=== PATIENT | male | born 1960 | race Caucasian/White ===

== ENCOUNTER 2017-02-23 18:07 | Inpatient (IN) ==
[2017-02-23] MEDS ORDERED: ZOFRAN IV ONE (18:32)
[2017-02-23] MEDS ORDERED: ANTIVERT PO ONE (18:43)
[2017-02-23 19:11] LABS: MANUAL DIFF NEEDED? NO
--- NOTE | 2017-02-23 19:17 | Diag Imaging Result Doc PS360 ---
EXAM: HEAD W/O CONTRAST HISTORY: dizziness TECHNIQUE: Dose reduction protocol COMPARISON: None. FINDINGS: No parenchymal hemorrhage. No epidural or subdural hematoma. No subarachnoid hemorrhage. Small old right parietal infarct. No mass identified on this noncontrasted exam. No hydrocephalus. No sinus opacification. IMPRESSION: 1.No hemorrhage 2.Mild chronic ischemic changes with a small old right parietal infarct Electronically signed by Anthony Alvarez 02/23/2017 7:14 PM
[2017-02-23 19:20] LABS: INR 0.98; PROTIME 10.3 Seconds (9.2-11.7); PTT 25.4 Seconds (22.0-36.0)
[2017-02-23 19:22] LABS: BASO% 0.5 % (0.0-0.8); EOS% 3.7 % (0.0-10.0); HEMATOCRIT 45.2 % (42.0-52.0); IMM GRAN# 0.07 X1000 (0.0-0.04); IMM GRAN% 0.6 % (0.0-0.5); LYMPH# 2.38 X1000 (1.2-3.4); MCH 31.6 PG (27-31); MCHC 35.4 g/dL (33-37); MCV 89.2 FL (81-99); MONO# 0.83 X1000 (0.11-0.59); MONO% 7.7 % (1.7-9.3); MPV 10.3 FL (7.4-10.4); NEUT% 65.5 % (42.2-75.2); PLT 217 X1000 (130-400); RBC 5.07 XMIL (4.7-6.1)
[2017-02-23 19:39] LABS: AGAP 19; ALBUMIN 4.1 g/dL (3.5-5.0); ALKALINE PHOSPHATASE 91 U/L (32-122); BUN 19 mg/dL (8-22); CALCIUM 8.5 mg/dL (8.8-10.2); CHLORIDE 92 mmol/L (98-107); CK PROFILE 99 U/L (24-204); COSMO 272; GOT 18 U/L (10-34); GPT 22 U/L (10-44); MAGNESIUM 1.8 mg/dL (1.5-2.7); POTASSIUM 3.3 mmol/L (3.5-5.1); SODIUM 131 mmol/L (136-145); TCO2 20 mmol/L (25-35); TOTAL BILIRUBIN 0.25 mg/dL (0.20-1.00); TOTAL PROTEIN 6.5 g/dL (6.3-8.3)
--- NOTE | 2017-02-23 20:08 | Diag Imaging Result Doc PS360 ---
EXAM: FLAT/UPRIGHT ABD/1 VIEW CHEST HISTORY: nausea,diaphoresis TECHNIQUE: Flat and upright with chest, three views COMPARISON: Chest is compared to 11/26/2013 FINDINGS: Sternal wires are present. The lungs are well expanded. No pneumonia. No free air beneath the diaphragm. No bowel obstruction. No organomegaly. Oqfp-iv-vtoowate degenerative spine changes. IMPRESSION: 1.Mild cardiomegaly 2.No acute abdominal abnormality Electronically signed by Anthony Alvarez 02/23/2017 8:06 PM
--- NOTE | 2017-02-23 20:23 | PROVIDER DOCUMENTATION ---
This chart was entered by Merrill Mercado Scribe, acting as scribe for Elder Mac MD. HPI-Syncope/Dizziness - General Chief Complaint: Nausea/Vomiting Stated Complaint: DIZZINESS Time Seen by Provider: 02/23/17 18:18 Source: patient Allergies/Adverse Reactions: Patient Allergies Allergy/AdvReac Type Severity Reaction Status Date / Time atorvastatin calcium * Allergy Unknown Verified 02/23/17 19:29 [From Lipitor] Home Medications: Home Medication List Medication Instructions Recorded Confirmed Last Taken Type Aspirin [Aspirin EC] 81 mg PO DAILY 06/08/14 02/23/17 02/23/17 History Citalopram [Celexa] 20 mg PO DAILY 06/08/14 02/23/17 02/23/17 History Clopidogrel Bisulfate [Plavix] 75 mg PO DAILY 06/08/14 02/23/17 02/23/17 History Lisinopril 20 mg PO BID 06/08/14 02/23/17 02/23/17 History Multivitamin [Multi-Vitamin Daily] 1 each PO DAILY 06/08/14 02/23/17 02/23/17 History Nitroglycerin [Nitrostat] 0.4 mg SL PRN 06/08/14 02/23/17 07/26/14 07:00 History Furosemide [Lasix] 40 mg PO DAILY #0 tablet 06/10/14 02/23/17 02/23/17 Rx Isosorbide Mononitrate E.r. [Imdur] 60 mg PO DAILY #0 tablet 06/10/14 02/23/17 02/23/17 Rx Metoprolol Succinate E.r. [Toprol 50 mg PO DAILY #30 tablet 06/10/14 02/23/17 Rx Xl] Amlodipine Besylate [Amlodipine 2.5 mg PO DAILY 02/23/17 02/23/17 02/23/17 History Besylate] - History of Present Illness-Syncope/Dizzy Nature of Presenting Problem: Pt is a 56 yowm who presents to ER with CC of dizziness (room spinning) after 3 extraneous sneezes at approximately 1630 today while sitting on his couch at home watching tv. Pt also complains of nausea and vomiting. Pt reports hx of open heart surgery (originally going to have a triple bypass, but only had 1 bypass performed) and carotid surgery. Pt does report that he has been having soft stools and is diaphoretic on exam. Onset/Duration: reports: 1-3 hours ago Timing: reports: still present Position/Activity at time of episode: reports: sitting Symptoms prior to episode: reports: other (hard sneeze x3) Loss of Consciousness: no loss of consciousness Location of injury. (If syncope resulted in an injury.): reports: none Current Symptoms: reports: sweaty, nausea, vomiting, lightheaded, dizzy, lightheaded. denies: fever, chills, chest pain, breathing difficulty, short of breath, abdominal pain, shoulder pain, arm pain, weakness, headache, pale, weak pulse, headache, blurred vision Recently Seen Here or By Another Healthcare Provider: No - Dizziness Severity in ED: reports: moderate Dizziness Related Current/Associated Symptoms: reports: nausea/vomiting, lightheaded, dizzy (room spinning), lightheaded, sense of spinning (room spinning). denies: weakness, headache, pale, weak pulse, headache, blurred vision, hearing loss, ringing/roaring in ears, earache, sense of falling, syncope, sense of confusion, off balance, cannot walk, cannot stand, unable to sit up, chronic dizziness Any recent trauma/injury?: reports: none Patient usually:: reports: walks without assistance Review of Systems - Adult - REVIEW OF SYSTEMS - ADULT Constitutional: denies: chills, fever, fatique, night sweats, weight gain, weight loss Eyes: denies: decreased vision, blurred vision, double vision, eye pain Ears, Nose, Mouth & Throat: denies: ear discharge, ear pain, hearing loss, nose pain, hoarseness, throat pain, throat swelling Cardiovascular: denies: chest pain, irregular heart rate, palpitations, syncope Respiratory: denies: cough, dyspnea on exertion, excessive sputum production, shortness of breath, wheezing Gastrointestinal: reports: nausea, vomiting. denies: abdominal pain, hematemesis, constipation, diarrhea (soft stools, no diarrhea), difficulty swallowing, frequent heartburn, poor appetite, rectal bleeding Genitourinary: reports: no symptoms reported Musculoskeletal: reports: no symptoms reported Integumentary: reports: other (diaphoretic). denies: hives, hair loss, itching , mole changes, nail changes, rash, skin sores/ulcer, skin thickening Neurological: reports: dizziness/vertigo (room spinning). denies: ataxia, headache/migraines, loss of balance, numbness, paresthesia, seizure, slurred speech, syncope, tremors Psychiatric: reports: no symptoms reported Endocrine: reports: no symptoms reported Hematologic/Lymphatic: reports: no symptoms reported Allergic/Immunologic: reports: no symptoms reported All Other Systems: Reviewed and Negative Past History - Adult - PAST MEDICAL HISTORY-ADULT Review of Records: reports: Nursing Assessment Review, Medications Reviewed Cardiovascular: reports: HTN, hyperlipidemia, MT Neurological: reports: CVA - PRIOR SURGERIES/PROCEDURES Surgical/Procedure History: reports: CABG, other (bilateral carotids) - PRIOR HOSPITALIZATIONS Prior Hospitalizations: reports: for similar symptoms - IMMUNIZATION STATUS Childhood Immunizations: See Nurse Assessment Flu Vaccine: See Nurse Assessment - FAMILY HISTORY Family History: reviewed, not pertinent Physical Exam-General - PHYSICAL EXAM-ADULT Initial Vital Signs Reviewed: Yes - CONSTITUTIONAL General Appearance: appears well, alert, moderate distress, obese - EYES Eyes: pink conjunctivae, other (horizontal nystagmus when gazing to left). negative: PERRL/EOMI - HEAD, EARS, NOSE, MOUTH & THROAT HENMT: normocephalic/atraumatic, moist mucous membranes, normal ENT inspection, TMs normal, pharynx normal. negative: TM abnormal, TM obscurred by cerumen - NECK Neck: non-tender, full range of motion, supple, normal inspection. negative: C- spine tenderness, limited range of motion, lymphadenopathy - RESPIRATORY Respiratory: chest non-tender, lungs clear, normal breath sounds, no pleuratic chest pain, no respiratory distress, no accessory muscle use. negative: respiratory distress, decreased breath sounds, accessory muscle use, wheezing - CARDIOVASCULAR Cardiovascular: normal peripheral pulses, regular rate, rhythm. negative: bradycardia, tachycardia, irregularly irregular - GASTROINTESTINAL (ABDOMEN) Abdominal Exam: normal bowel sounds, non tender, soft, no organomegaly, no pulsatile mass. negative: guarding, rebound, tenderness - LYMPHATIC Lymphatic: no adenopathy - MUSCULOSKELETAL Back Exam: normal inspection, no CVA tenderness, no vertebral tenderness. negative: CVA tenderness, vertebral tenderness Extremity: normal range of motion, non-tender, normal gait, normal inspection, no pedal edema, no calf tenderness, normal capillary refill, pelvis stable. negative: deformity, erythema, inflammation, swelling, tenderness - SKIN Integumentary: normal color, normal turgor, warm/dry. negative: abrasion(s), diaphoresis, ecchymosis, erythema, laceration(s), swelling, tenderness, warm - NEUROLOGIC Neurologic: shirt sewer II-XII nml as tested, grossly normal, no motor/sensory deficits . negative: facial droop, focal weakness, motor weakness, sensory deficit - PSYCHIATRIC Psych/Mental Status: normal thought content, normal thought process, oriented x 3, anxious. negative: normal mood/affect Progress - PLAN OF CARE/RESULTS Progress/Plan/Lab Results: Vital Signs - 8 hr 02/23/17 18:09 02/23/17 19:41 Temperature 97.7 F Pulse Rate 99 H 82 Respiratory Rate 20 Blood Pressure 230/66 173/92 O2 Sat by Pulse Oximetry 98 94 L Laboratory Results - last 24 hr 02/23/17 02/23/17 02/23/17 18:30 18:30 18:30 WBC 10.82 H RBC 5.07 Hgb 16.0 Hct 45.2 MCV 89.2 MCH 31.6 H MCHC 35.4 RDW Std Deviation 12.9 Plt Count 217 MPV 10.3 Immature Gran % (Auto) 0.6 H Neut % (Auto) 65.5 Lymph % (Auto) 22.0 [place] % (Auto) 7.7 Eos % (Auto) 3.7 Baso % (Auto) 0.5 Immature Gran # (Auto) 0.07 H Neut # (Auto) 7.09 H Lymph # (Auto) 2.38 [place] # (Auto) 0.83 H Eos # (Auto) 0.40 Baso # (Auto) 0.05 PT INR PTT (Actin FS) D-Dimer Sodium 131 L Potassium 3.3 L Chloride 92 L Carbon Dioxide 20 L Anion Gap 19 BUN 19 Creatinine 1.0 Estimated GFR/1.73 m2 > 60 BUN/Creatinine Ratio 19 Glucose 234 H Calculated Osmolality 272 Calcium 8.5 L Magnesium 1.8 Total Bilirubin 0.25 AST 18 ALT 22 Alkaline Phosphatase 91 Creatine Kinase 99 Troponin T Xbp-O-Ilhprllzhyp Pept Total Protein 6.5 Albumin 4.1 Globulin 2.4 Albumin/Globulin Ratio 1.7 Lipase 24 02/23/17 02/23/17 02/23/17 18:30 18:30 18:30 WBC RBC Hgb Hct MCV MCH MCHC RDW Std Deviation Plt Count MPV Immature Gran % (Auto) Neut % (Auto) Lymph % (Auto) [place] % (Auto) Eos % (Auto) Baso % (Auto) Immature Gran # (Auto) Neut # (Auto) Lymph # (Auto) [place] # (Auto) Eos # (Auto) Baso # (Auto) PT 10.3 INR 0.98 PTT (Actin FS) 25.4 D-Dimer 0.35 Sodium Potassium Chloride Carbon Dioxide Anion Gap BUN Creatinine Estimated GFR/1.73 m2 BUN/Creatinine Ratio Glucose Calculated Osmolality Calcium Magnesium Total Bilirubin AST ALT Alkaline Phosphatase Creatine Kinase Troponin T Orc-H-Qrxlrctspov Pept 78 Total Protein Albumin Globulin Albumin/Globulin Ratio Lipase 02/23/17 18:30 WBC RBC Hgb Hct MCV MCH MCHC RDW Std Deviation Plt Count MPV Immature Gran % (Auto) Neut % (Auto) Lymph % (Auto) [place] % (Auto) Eos % (Auto) Baso % (Auto) Immature Gran # (Auto) Neut # (Auto) Lymph # (Auto) [place] # (Auto) Eos # (Auto) Baso # (Auto) PT INR PTT (Actin FS) D-Dimer Sodium Potassium Chloride Carbon Dioxide Anion Gap BUN Creatinine Estimated GFR/1.73 m2 BUN/Creatinine Ratio Glucose Calculated Osmolality Calcium Magnesium Total Bilirubin AST ALT Alkaline Phosphatase Creatine Kinase Troponin T < 0.010 Nog-W-Ucmmwkhkbwk Pept Total Protein Albumin Globulin Albumin/Globulin Ratio Lipase Orders Category Date Time Status Cardiac Monitoring DIRECTED Care 02/23/17 18:25 Active FSBS/Accucheck Result NOW Care 02/23/17 18:26 Active Oxygen Therapy- ED Nursing DIRECTED Care 02/23/17 18:25 Active Saline Loc NOW Care 02/23/17 18:25 Active HEAD W/O CONTRAST [CT] Stat Exams 02/23/17 18:42 Completed acute [FLAT/UPRIGHT ABD/1 VIEW CHEST] [RAD] Stat Exams 02/23/17 18:31 Completed CBC WITH ELECTRONIC DIFF [HEME] Stat Lab 02/23/17 18:30 Completed CK PROFILE [SP CHEM] Stat Lab 02/23/17 18:30 Completed COMPREHENSIVE METABOLIC PANEL [CHEM] Stat Lab 02/23/17 18:30 Completed D-DIMER [CHEM] Stat Lab 02/23/17 18:30 Completed LIPASE [CHEM] Stat Lab 02/23/17 18:30 Completed MAGNESIUM [CHEM] Stat Lab 02/23/17 18:30 Completed PRO B-NATRIURETIC PEPTIDE Stat Lab 02/23/17 18:30 Completed PROTIME WITH INR [COAG] Stat Lab 02/23/17 18:30 Completed PTT [COAG] Stat Lab 02/23/17 18:30 Completed TROPONIN T Stat Lab 02/23/17 18:30 Completed Meclizine [Antivert] Med 02/23/17 18:43 Discontinued 25 mg PO NOW ONE Ondansetron [Zofran] Med 02/23/17 18:32 Discontinued 4 mg IV NOW ONE EKG [EKG] Stat Ther 02/23/17 18:13 Ordered Result Diagrams: 02/23/17 18:30 02/23/17 18:30 - EKG 1 Time of EKG reading by physician:: 18:15 EKG Read and Signed by:: Elder Mac EKG Interpretation (*Must complete 3 of following elements*): Abnormal ( Possible left atrial enlargement; Incomplete RBBB; Anteroseptal infarct, age undetermiend; ST & T wave abnormality, consider inferolateral ischemia) Rate: 89 Rhythm: Sinus rhythm with occasional PVC - XRAY 1 XRAY: Bilateral XRAY Study: Chest, Abdomen Impression: See EMR Report XRAY Interpretation: Cardiomegaly, otherwise NAD - Dr. Mac - CT/MRI 1 CT Study: Head (No hemorrhage; Mild chronic ischemic changes with a small old right parietal infarct - Dr. Alvarez (Radiologist)) Impression: See EMR Report CT Results: See report - CONSULTS/PCP/HOSPITALIST Notification #1 *Consult/PCP/Hospitalist*: Dr. Barry (Hospitalist) Time Discussed: 20:20 Consult Disposition: Admit Departure - Departure Time of Disposition Decision: 20:20 DIAGNOSIS: Dizziness Uncontrollable nausea and vomiting Qualifiers: Vomiting type: unspecified Qualified Code(s): R11.2 - Nausea with vomiting, unspecified CAD (coronary artery disease) Qualifiers: Coronary Disease-Associated Artery/Lesion type: unspecified vessel or lesion type [place] vs. transplanted heart: [place] heart Associated angina: without angina Qualified Code(s): I25.10 - Atherosclerotic heart disease of [place] coronary artery without angina pectoris Disposition: ADMITTED INPATIENT 09 Certified Medical Emergency: Emergent Condition: Stable Referrals and Follow-Ups: None,PCP [Primary Care Provider] - - Critical Care Note This patient required my direct & personal management of CC.: No This chart was documented by the indicated scribe, (Merrill Mercado Scribe) and accurately reflects the services I performed and decisions made by me, Elder Mac MD, as attested by the provider's signature.
[2017-02-23] MEDS ORDERED: ZOFRAN IV PRN (20:29)
[2017-02-23] MEDS ORDERED: NITROGLYCERIN SL PRN (20:30)
[2017-02-23 21:06] LABS: HEMOGLOBIN A1C 7.8 % (4.8-6.0)
[2017-02-23] MEDS: PRINIVIL PO SCH (21:29)
[2017-02-23] MEDS: HUMALOG SUBQ SCH (21:35)
[2017-02-23] MEDS: POTASSIUM CHLORIDE 20 MEQ/SWI 20 MEQ/100 ML IVPB IV SCH ×2 (21:58→23:50)
[2017-02-23] MEDS ORDERED: NS 1,000 ML ONE (22:00)
[2017-02-23 22:35] LABS: UR AMPHETAMINES QUAL NONE DETECTED (NONE DETECT); UR BARBITUATES QUAL NONE DETECTED (NONE DETECT); UR BENZODIAZEPIN QUAL NONE DETECTED (NONE DETECT); UR CANNABINOIDS QUAL NONE DETECTED (NONE DETECT); UR COCAINE QUAL NONE DETECTED (NONE DETECT); UR METHADONE QUAL NONE DETECTED (NONE DETECT); UR OPIATES QUAL NONE DETECTED (NONE DETECT); UR OXYCODONE QUAL NONE DETECTED (NONE DETECT); UR PCP QUAL NONE DETECTED (NONE DETECT)
[2017-02-23] MEDS: NS 1,000 ML IV SCH ×2 (22:56→23:32)
[2017-02-23] MEDS ORDERED: TYLENOL PO PRN (22:58)
[2017-02-23] MEDS ORDERED: ATIVAN IV PRN (22:58)
[2017-02-23] MEDS ORDERED: ANTIVERT PO PRN (22:58)
--- NOTE | 2017-02-23 23:07 | HISTORY AND PHYSICAL ---
This dictation is for Dr. Julian Barry, hospitalist. PRIMARY CARE PROVIDER: Dr. Harkins. MANGLE TENDER CLOTH: Dr. Newby, in [place]. This dictation is for a pratik Barry hospitalist. CHIEF COMPLAINT: Dizziness after sneezing spell, and nausea and vomiting. HISTORY OF PRESENT ILLNESS: This is a 56-year-old male, who presented to the emergency room today with a complaint of vertigo and nausea and vomiting. He stated after having a sneezing spell this morning, I believe he said 3 sneezes, that he had blurred vision and double vision. He then experienced nausea and vomiting times several episodes. He also began having softer stools, which he states that he does not normally have. He stated that he has not been around anybody with illness recently. He has not had any travel outside the country. PAST MEDICAL HISTORY: He has a past medical history of coronary artery disease, hypertension, hyperlipidemia, which he is not on a statin, secondary to allergy, and he does confess that he is not controlling it with his diet very well. He also had a stroke in the past, and has had a bilateral carotid endarterectomy, so it is concerning the patient for his past vascular history. In the emergency room, a CT scan was obtained, which showed mild chronic ischemic changes with a small, old, right parietal infarct. It did not show any new acute disease. LABORATORY DATA: Grossly normal, other than a mild hyponatremia, sodium of 131, and elevated blood glucose. During the interview, the patient seemed very agitated and restless. However, he was alert and oriented x3. He did not have his at the bedside, who noted that he had taken Celexa for many years, but after changing to Dr. Harkins, it has not been continued. I believe this happened 3 years ago, and a they would be interested in him restarting that medication. At any rate, the patient will be admitted to the [facility] Unit, for further evaluation and treatment. PAST MEDICAL HISTORY: 1. Coronary artery disease, status post bypass in 2010. 2. Hypertension. 3. Hyperlipidemia with a statin allergy, and no current treatment. 4. Angina. 5. Stroke. 6. Diverticulosis. 7. Diabetes mellitus type 2 with hyperlipidemia. Again, with no current treatment. PREVIOUS SURGICAL HISTORY: 1. CABG in December 2010. 2. Bilateral carotid endarterectomy 2010. 3. He had saphenous vein grafting, as well as, pain in his left forearm and I believe his left side as well. FAMILY HISTORY: Significant for heart disease, and I believe his father of a myocardial infarction at age 59, also had a brother with a CA at age 40, and diabetes mellitus was noted in first-degree relatives. SOCIAL HISTORY: Patient is . Lives with his . He works at [employer]. He is a food office equipment mechanic. Quit smoking in 2010, after having a [id number] history. Denies alcohol or illicit drug use or abuse. ALLERGIES: Statin drugs. HOME MEDICATIONS: 1. Nitroglycerin 0.4 mg sublingual p.r.n. chest pain. 2. Plavix 75 mg p.o. daily. 3. Aspirin 81 mg p.o. daily. 4. Multivitamin 1 p.o. daily. 5. Celexa 20 mg p.o. daily, however the patient has not taken this in 3 years. 6. Lisinopril 20 mg p.o. b.i.d. 7. Toprol-XL 50 mg p.o. daily. 8. Imdur 60 mg p.o. daily. 9. Lasix 40 mg p.o. daily. 10. Amlodipine 2.5 mg p.o. daily. REVIEW OF SYSTEMS: A 14-point review of systems conducted with the patient. He denied overt chest pain or palpitations. He did complain of dizziness and vertigo and double vision. He did not complain of a headache. He did complain of sneezing, however, did not state he had rhinorrhea or any postnasal drip. Also was positive for nausea and vomiting. No hematemesis. He complained of soft stools. Denied overt diarrhea. No melena or hematochezia. He also complained of diaphoresis. All other positives for admission are listed above in the HPI. All other systems were reviewed and found to be negative. PHYSICAL EXAMINATION: VITAL SIGNS: Temperature 97.7, pulse 85, respirations 20, blood pressure 173/92, oxygen saturation 96% on 2 L nasal cannula. GENERAL: This is a slightly agitated 56-year-old male, lying in the ER stretcher, in no acute distress. He answers all questions appropriately, and is alert and oriented x3. However, he did become somewhat agitated or aggressive with some of the questioning. was at the bedside. HEENT: Head is atraumatic, normocephalic. Pupils equal, round, reactive to light. Extraocular eye movements intact. Sclerae was anicteric. Conjunctivae are pink. Oral mucosa was mildly dry. Poor dentition. Lips were chapped, otherwise no postnasal drip. Normal oropharynx. NECK: Supple. No JVD noted. Trachea midline. CARDIAC: Regular rhythm, S1-S2 appreciated. No murmurs, gallops, or rubs. Sinus rhythm was noted on monitor with PVCs. Nursing did note a 2:1 flutter on arrival to the emergency room. LUNGS: Mildly prolonged expiratory phase, otherwise, clear to auscultation. No rhonchi, wheezes or rales. Symmetrical rise and fall with respirations. CHEST: Midline scar noted from previous CABG. Symmetrical rise and fall with respirations, nontender to palpation. ABDOMEN: Protuberant, soft, nondistended, nontender. Bowel sounds present in all 4 quadrants, normoactive. No pulsatile mass. No organomegaly could be palpated. EXTREMITIES: Has 1+ nonpitting edema left lower extremity, and 1+ edema right lower extremity, mildly pitting on the right foot, and 2+ pedal pulses bilaterally. MUSCULOSKELETAL: Has 5/5 upper and lower extremity strength with normal range of motion, equal bilaterally. NEUROLOGICAL: Alert and oriented x3. Answers all questions appropriately. Cranial nerves 2 through 12 grossly intact. No facial asymmetry noted. GENITOURINARY: The patient voids. No bladder distention noted. Otherwise deferred. SKIN: Warm, dry and intact. No acute lesions or rash. DIAGNOSTIC DATA: CT of the head that showed mild chronic ischemic changes with a small, old, right parietal infarct. No mass effect. No hemorrhage. Abdominal x-ray was a flat and upright, it showed mild cardiomegaly, and no acute abdominal abnormality. LABORATORY DATA: WBC 10.82, hemoglobin 16, hematocrit 45.2, platelet count 217,000. Coag's within normal limits. D-dimer 0.35. Sodium 131, potassium 3.3, chloride 92, carbon dioxide 20, BUN is 19, creatinine is 1, glucose 234. CK 99, troponin less than 0.10. Lipase 24. ASSESSMENT AND PLAN: 1. TIA versus CVA with a differential of vertigo. We will keep the patient clear liquids tonight with aspiration precautions. The patient has a vasculopathy with multiple cardiac stents, and a previous stroke, as well as, a carotid endarterectomy. We will order MRI in the morning. He was given meclizine in the emergency room, which he did state helps. He was still having some blurred vision. We will order neuro checks q.2 hours. We will continue the meclizine. We will not consult Neurology at this time, but will consider if needed in the future. We will order an echocardiogram in the morning. 2. Hypertension. We will continue patient's home medications for hypertension at this time, with dosing to begin in the morning. Patient's blood pressure is mildly elevated in the 160s systolic. We will continue to keep him between 160 and 200 systolic for hypoperfusion, in case of a CVA. 3. Hyperlipidemia. We will check a fasting lipid panel in the morning. The patient, as noted above, has had multiple vascular incidents, but he has a statin allergy, and is not diet controlling. We have consulted dietary to give him teaching on this. 4. Diabetes mellitus type 2, with no home treatment. The patient was noted to be hyperglycemic with a blood glucose of 234. We will start on fingerstick blood sugars before meals at bedtime, not to be treated unless blood glucose is greater than 200, if he is insulin kacie. We will check a hemoglobin A1c. 5. Previous left stroke, with no residual deficits, aware. 6. Hyponatremia. This is likely related to patient's nausea and vomiting. We will give fluid hydration normal saline at 100 mL an hour. Hopeful that this will correct his sodium. As noted above, the patient wishes to restart Celexa, but as this can decrease the sodium, we will not start it at this time. We will also hold his Lasix for at least 24 hours, as he is mildly fluid volume depleted. 7. Coronary artery disease, status post bypass grafting. Continue Plavix and aspirin. 8. Nausea and vomiting. Zofran 4 mg IV q.4 hours. 9. Hypokalemia. We will give 40 mEq of potassium chloride IV. Additional orders: We will add Ativan 1 mg IV q.4 hours, as the patient did show agitation in the emergency room. We will also check a urine drug screen. The patient states that he does not use alcohol or illicit drugs. Dictated by COLIN Huynh for Julian Barry MD cc: COLIN Huynh MD Hiteshri S. Bhavsar, MD Dr. Hunter, in [place].
[2017-02-23] MEDS: LOVENOX SUBQ SCH (23:50)
[2017-02-23] MEDS: PROTONIX IV SCH (23:50)
[2017-02-23] MEDS: SODIUM CHLORIDE 0.9% INJ SCH (23:50)
[2017-02-24] MEDS ORDERED: PNEUMOVAX 23 IM ONE (00:30)
[2017-02-24 04:58] LABS: MANUAL DIFF NEEDED? NO
[2017-02-24 05:00] LABS: BASO% 0.3 % (0.0-0.8); HEMATOCRIT 41.9 % (42.0-52.0); HEMOGLOBIN 14.6 g/dL (14.0-18.0); IMM GRAN# 0.03 X1000 (0.0-0.04); IMM GRAN% 0.3 % (0.0-0.5); LYMPH# 1.61 X1000 (1.2-3.4); LYMPH% 16.3 % (20.5-51.1); MCH 31.6 PG (27-31); MCHC 34.8 g/dL (33-37); MCV 90.7 FL (81-99); MONO# 0.69 X1000 (0.11-0.59); MPV 9.9 FL (7.4-10.4); NEUT% 74.1 % (42.2-75.2); PLT 185 X1000 (130-400); RBC 4.62 XMIL (4.7-6.1)
[2017-02-24 05:28] LABS: AGAP 12; BUN 16 mg/dL (8-22); CALCIUM 8.5 mg/dL (8.8-10.2); CHLORIDE 103 mmol/L (98-107); COSMO 283; MAGNESIUM 1.9 mg/dL (1.5-2.7); POTASSIUM 4.2 mmol/L (3.5-5.1); SODIUM 140 mmol/L (136-145); TCO2 25 mmol/L (25-35)
[2017-02-24] MEDS: HUMALOG SUBQ SCH ×4 (06:25→20:44)
--- NOTE | 2017-02-24 07:26 | EKG Report ---
Test Performed on : 02/24/2017 07:04:09 AM Test Reason : rhythm check Blood Pressure : / mmHG Vent. Rate : 089 BPM Atrial Rate : 089 BPM P-R Int : 162 ms QRS Dur : 094 ms QT Int : 382 ms P-R-T Axes : 057 055 231 degrees QTc Int : 464 ms Normal sinus rhythm. Incomplete right bundle branch block Septal infarct (cited on or before 09-JUN-2014) ST \T\ T wave abnormality, consider inferolateral ischemia Abnormal ECG When compared with ECG of 23-FEB-2017 18:15, premature ventricular complexes. are no longer present T wave inversion more evident in Inferior leads T wave amplitude has increased in Anterior leads Confirmed by Luzmaria DÍAZ, Anibal Miller ([id number]) on 02/25/2017 8:20:43 AM
--- NOTE | 2017-02-24 07:27 | EKG Report ---
Test Performed on : 02/23/2017 6:15:58 PM Test Reason : Order Cancelled Blood Pressure : / mmHG Vent. Rate : 089 BPM Atrial Rate : 089 BPM P-R Int : 170 ms QRS Dur : 100 ms QT Int : 390 ms P-R-T Axes : 059 047 179 degrees QTc Int : 474 ms Sinus rhythm. with occasional premature ventricular complexes. Possible Left atrial enlargement Incomplete right bundle branch block Anteroseptal infarct (cited on or before 09-JUN-2014) ST \T\ T wave abnormality, consider inferolateral ischemia Abnormal ECG When compared with ECG of 26-JUL-2014 08:59, Significant changes have occurred Unconfirmed Result
[2017-02-24] MEDS: IMDUR PO SCH (08:55)
[2017-02-24] MEDS: ASPIRIN EC PO SCH (08:55)
[2017-02-24] MEDS: NORVASC PO SCH (08:55)
[2017-02-24] MEDS: PLAVIX PO SCH (08:55)
[2017-02-24] MEDS: TOPROL XL PO SCH (08:55)
[2017-02-24] MEDS: PRINIVIL PO SCH ×2 (08:55→20:44)
[2017-02-24] MEDS: THERA M PLUS PO SCH (08:55)
--- NOTE | 2017-02-24 09:08 | PROGRESS NOTE ---
DATE: 02/24/2017 SUBJECTIVE: He described yesterday he had just finished mowing the grass or doing yard work came in. He sneezed 3 times consecutively and noticed that the TV and everything in his vision was spinning around. He did not lose any vision, both eyes presented the same way. He broke out in a sweat and was nauseated. Denied any real focal changes. No tonic-clonic activity. He came to the emergency room and it seemed to let up some, although there was still some visual movement. This morning, he did not appreciate it as much. OBJECTIVE: Lungs: His lungs are clear in all lung badillo. Cardiovascular: Regular rhythm and rate without murmur or S3. Abdomen: Soft. Neck: Carotids, I did not appreciate any bruits. Vital signs: He remained afebrile. Temperature 98.4, pulse 84, respirations 18, blood pressure 184/64. Skin: Warm and dry. LAB: White count 9870, hematocrit 41, platelet count 185,000. Chemistry: Sodium 140, potassium 4.2, chloride 103, bicarb 25, BUN 16, creatinine 0.9. Note, his cholesterol profile LDL was 116. His HDL was 28. TSH was 0.95. CT of his head without contrast was no hemorrhage, mild. Chronic ischemic changes. Small, old, right parietal infarct noted. Abdominal x-ray done yesterday. No acute abnormality. Other history: He has had a coronary bypass and he has had some stents placed. No heart attack by his report. He has had both carotids cleaned out. ASSESSMENT AND PLAN: This sounds like vertiginous symptoms with visual field rotating. No other focal neurologic deficits, accompanied by some nausea. We are going to hydrate him with some fluid. I think watch his blood pressure, which is a little on the high side. We may adjust his medications. At present time, he is on amlodipine 2.5 mg a day. He is on Plavix 75 mg a day. Prinivil 20 mg b.i.d., they did start him on some meclizine p.r.n. or Antivert. He is on metoprolol 50 mg daily. We will watch him today and see how he does. He is on, I think a regular diet. An MRI or MRA of the brain was ordered. Not sure if we will be able to get that before tomorrow, being a holiday weekend. cc: Phil Regalado MD
[2017-02-24] MEDS: NS 1,000 ML IV SCH ×3 (09:10→19:48)
--- NOTE | 2017-02-24 17:47 | ECHO REPORT ---
ORDER DATE: 02/24/2017 TEST: Echocardiography report. MEASUREMENTS: Left ventricular end-diastolic diameter 5.4, end-systolic diameter 3.4, left atrium 5.1, aortic root 3. SUMMARY: 1. Technically difficult study due to limited acoustic window quality. 2. Mild aortic valve sclerosis is demonstrated with adequate aortic valve opening evident. Peak gradient across the aortic valve is 24 mmHg. There is mild aortic regurgitation. Mild to moderate mitral annular calcification is demonstrated, with mild to moderate mitral regurgitation. Tricuspid and pulmonic valves are without structural abnormality with trace tricuspid regurgitation. Aortic root is normal in size. 3. Normal left ventricular chamber size, with mild concentric left ventricular hypertrophy is suggested on 2-dimensional images. Estimated left ventricular ejection fraction appears to be at least 65%. No regional wall motion abnormalities can be appreciated. Doppler suggests grade 1 left ventricular diastolic dysfunction. Left atrium is moderately enlarged. Right atrium and right ventricle are normal in size with normal right ventricular systolic function. 4. No pericardial effusion. 5. Inferior vena cava not well demonstrated. CONCLUSIONS: 1. Technically difficult study. 2. Mild aortic valve sclerosis with minimal aortic stenosis and mild aortic regurgitation. 3. Mild to moderate mitral annular calcification with mild to moderate mitral regurgitation. 4. Mild concentric left ventricular hypertrophy with estimated left ventricular ejection fraction at least 65%. 5. Grade 1 left ventricular diastolic dysfunction suggested. 6. Moderate left atrial enlargement. cc: MD Pablito Nolasco CRNP
[2017-02-24] MEDS: SODIUM CHLORIDE 0.9% INJ SCH (22:52)
[2017-02-24] MEDS: LOVENOX SUBQ SCH (22:52)
[2017-02-24] MEDS: PROTONIX IV SCH (22:52)
[2017-02-25] MEDS: NS 1,000 ML IV SCH ×3 (05:09→20:54)
[2017-02-25] MEDS: HUMALOG SUBQ SCH ×4 (06:05→20:52)
[2017-02-25] MEDS: ASPIRIN EC PO SCH (08:59)
[2017-02-25] MEDS: PRINIVIL PO SCH (08:59)
[2017-02-25] MEDS: NORVASC PO SCH (08:59)
[2017-02-25] MEDS: IMDUR PO SCH (08:59)
[2017-02-25] MEDS: PLAVIX PO SCH (08:59)
[2017-02-25] MEDS: THERA M PLUS PO SCH (08:59)
[2017-02-25] MEDS: TOPROL XL PO SCH (08:59)
--- NOTE | 2017-02-25 13:03 | Diag Imaging Result Doc PS360 ---
EXAM: MRA BRAIN W/O CONTRAST INDICATION: stroke COMPARISON: None. FINDINGS: There is no evidence of flow-limiting stenosis, vascular malformation, or cerebral aneurysm involving the arteries comprising the [place] including the anterior, middle, and posterior circulations. The intracranial segments of the ICAs and the distal vertebral arteries are grossly unremarkable. IMPRESSION: No evidence of intracranial flow-limiting stenosis. Electronically signed by Fab Cheng 02/25/2017 1:01 PM
--- NOTE | 2017-02-25 13:42 | PROGRESS NOTE ---
DATE: 02/25/2017 SUBJECTIVE: Today Mr. Amaya refers to be doing fine. Dizziness and vertigo have completely resolved, but he still feels very unbalanced. OBJECTIVE: Vital signs: Blood pressure is 169/76, pulse of 88, respirations 14 , temperature 98.6 degrees. General: Mr. Oviedo is a 56-year-old male. He was sitting up in a chair. He did not seem to be in any distress. HEENT: Mucosa is pink and moist. Anicteric. Acyanotic. Neck: Supple. Chest: Clear. Cardiovascular: Regular rate and rhythm. Abdomen: Soft, nontender. Extremities: No pedal edema. TREE SURGEON: Patient was alert, oriented, had a little bit of wide-based gait, but otherwise no other cerebellar functions were found and has minimal motor deficit. LABORATORY DATA: Glucose is 145. ASSESSMENT: 1. Acute vertigo with multiple episodes of vomiting. Patient did have an MRA which was negative, but we need an MRI to make sure he does not have any posterior circulation infarction. I will therefore order an MRI. I have already spoken with the r and d lab technician down there and he is willing to do that so we will review the report and go from there. 2. Uncontrolled hypertension. The patient presented with a blood pressure of 230/66, and I think this could have also been implicating the etiology of the vertigo. Now that the blood pressure is a whole lot better controlled, vertigo is also improved. We will continue aggressive management of his blood pressure. 3. Morbid obesity with a BMI of 38. The patient has been counseled. 4. History of coronary artery disease status post coronary artery bypass graft in 2006 noted. 5. Diabetes mellitus stable. cc: Jim Juarez MD Review MRI report: Acute Left cerebellar infarct. a- consult Neurology b- continue with dual antiplatelet therapy as before c- start Zetia since patient had a bad pancreatitis reaction to Lipitor. d- Advised the attending nurse to look out for possible complications of posterior circulation stroke e- advised liberal BP management critical time spent 45 minutes MTDD
--- NOTE | 2017-02-25 14:49 | Diag Imaging Result Doc PS360 ---
EXAM: MRI BRAIN W W/O CONTRAST INDICATION: vertigo COMPARISON: None. FINDINGS: There is a focal acute infarct involving the left cerebellar hemisphere anteriorly. No other acute infarct is appreciated. There is increased T2/FLAIR signal in the left cerebellar hemisphere corresponding to the infarct. There are several chronic lacunar infarcts in the periventricular white matter bilaterally but predominantly on the right. There is gliosis surrounding these chronic infarct. There is patchy T2/FLAIR hyperintensity in the periventricular and subcortical white matter suggesting mild to moderate microangiopathy. On T2/FLAIR, there is a focal wedge-shaped hyperintensity in the left cerebellar hemisphere. It is separate from but near the acute infarct. There is no restricted diffusion associated with this smaller focus indicating that it is not an acute infarct. There is, however, focal enhancement corresponding to the signal abnormality on postcontrast T1 images. It is nonspecific but it probably represents an older subacute infarct that has normalized on diffusion and is now exhibiting enhancement, which is often the case as infarcts age. There is no discrete intracranial mass, mass effect, or intracranial hemorrhage, otherwise. The surrounding soft tissues and bony structures are essentially unremarkable. IMPRESSION: 1.Acute infarct involving the left cerebellar hemisphere. 2.Focal signal abnormality separate from the acute infarct also involving the left cerebellar hemisphere that exhibits enhancement. More than likely this represents an older subacute infarct. Consider a follow-up scan, however. 3.Several periventricular chronic lacunar infarcts. Electronically signed by Fab Cheng 02/25/2017 2:47 PM
[2017-02-25] MEDS ORDERED: TOPROL XL PO SCH (16:08)
[2017-02-25] MEDS ORDERED: ZETIA PO SCH (21:00)
[2017-02-25] MEDS: PROTONIX IV SCH (22:22)
[2017-02-25] MEDS: LOVENOX SUBQ SCH (22:22)
[2017-02-26] MEDS: HUMALOG SUBQ SCH ×2 (06:47→11:54)
[2017-02-26] MEDS: ASPIRIN EC PO SCH (08:08)
[2017-02-26] MEDS: PLAVIX PO SCH (08:09)
[2017-02-26] MEDS: THERA M PLUS PO SCH (08:09)
[2017-02-26] MEDS: IMDUR PO SCH (08:09)
[2017-02-26] MEDS: NS 1,000 ML IV SCH (08:56)
[2017-02-26] MEDS ORDERED: PRINIVIL PO SCH (09:00)
[2017-02-26 11:55] VITALS: BP 188/70
--- NOTE | 2017-02-26 12:24 | CONSULTATION ---
DATE OF CONSULTATION: 02/26/2017 HISTORY OF PRESENT ILLNESS: Mr. Amaya is 56 years old and there is MRI evidence of acute cerebellar infarction. History from the patient is that he did a little bit of yard work three days ago and was not overheated or exhausted. He felt well. He came inside to rest. He noted sudden onset of vision circling in a clockwise direction. Vision disturbance persisted no matter what direction he put his gaze. There was never diplopia, blindness, or focal loss of visual field. He developed some nausea and went to the bathroom to vomit. He felt a little bit weak all over, but there was no focal weakness or focal clumsiness. He did not specifically notice stumbling, unsteady gait. He did not fall. He did not have headache. There was never altered consciousness, altered awareness, memory gap. He came to the hospital and gradually recovered. He felt well the next day, but did notice occasional brief vision disturbance, particularly when reclined looking at the overhead ceiling lights. He has not had any vision disturbance in the last 2 days. He feels completely back to baseline now. There is history of stroke [place] He reports waking up from anesthesia then noticing left-sided weakness. He gradually recovered, spent some time in rehabilitation, and then was eventually completely back to baseline. There is no other history of clinical stroke. He had apparent carotid endarterectomy one side a few weeks after CABG and other side the following month. He does not recall carotid imaging since endarterectomy. Workup here includes brain MRI scan showing restricted diffusion in the left cerebellar hemisphere consistent with acute infarction. There is also a wedge-shaped separate area in the left cerebellar hemisphere consistent with old infarction. There are scattered white matter signals in the cerebral hemispheres bilaterally, more prominent on the right. He has been taking his medicines correctly, including Zetia, blood pressure medicines, aspirin and clopidogrel. He quit smoking cigarettes several years ago. He has never had diagnosed diabetes mellitus. reports he had a problem tolerating a statin drug. She and patient believe that he might have had pancreatitis associated with atorvastatin, but she is not certain. Other workup includes brain MRA showing nothing remarkable. I do not find evidence or report of carotid imaging this admission, and I will order that. Echocardiogram showed no source of embolus. Systolic blood pressures were over 200 initially. He has had some systolics recorded in the 190s here. He has tolerated that without headache. reports systolic blood pressures usually 150s when checked at home, but they did not check blood pressure when he had his recent episode. On exam, Mr. Amaya is awake, alert, attentive and appropriate. Speech is not dysarthric. Language function is intact. Memory is good. Head and neck are unremarkable. Visual badillo are full, tested carefully by confrontational finger counting. He has full lateral and horizontal eye movements without significant nystagmus. Facial sensation and motility are symmetric. Gag is intact. Palate is midline. Tongue is midline. He can hear. Shoulder shrug is good bilaterally. He has good strength in the arms and legs. Tone is symmetric in the limbs. He did well on finger- to-nose testing bilaterally. He did well while seated with [id number] testing. He reports good pinprick appreciation over the limbs. Reflexes are 1+ at the wrists, 2+ at the knees, 1+ at the ankles symmetrically. Plantar response is silent bilaterally. Proprioception is normal at the great toe MTP joint bilaterally. Gait is normal. I observed him walking somewhat tethered by the IV pole and heart monitor, but there was no significant wide base or other ataxia feature. He turns well to the left and to the right. He was able to place his feet properly for heel-to-toe tandem walking without assistance. Romberg is absent. IMPRESSION: 1. Acute left cerebellar hemispheric infarction with little in the way of clinical features. No evidence of increased intracranial pressure from obstructive hydrocephalus. 2. Previous left hemiparesis following coronary artery bypass graft with magnetic resonance imaging evidence of right more than left hemisphere old subcortical infarction. 3. Risk factors for cerebrovascular disease, including ischemic heart disease, previous stroke, previous cigarette smoking, hypertension, dyslipidemia. There is also evidence of diabetes mellitus based on elevated blood sugars recorded this admission. We discussed his risk factors. I encouraged him to be aggressive with management of those. 4.Carotid ultrasound just completed shows critical stenosis. We do not have prior study for comparison, but features are consistent with chronic stenosis. This is not the vascular distribution for his recent infarct. We discussed options for further work- up including CTA, MRA, conventional arteriogram. Since he is clinically stable and that lesion is not symptomatic, I think it would be reasonable to discharge home with plan to repeat carotid study in a few months, sooner if more symptoms. I do not think we need any other workup urgently. I told him to report if he has any more episodes. I encouraged him to stay well hydrated. Thanks for asking me to see Mr. Amaya. cc: Clinton Pichardo III, MD MTDD
--- NOTE | 2017-02-27 09:23 | DISCHARGE SUMMARY ---
ADMISSION DATE: 02/23/2017 DISCHARGE DATE: 02/26/2017 DATE OF ADMISSION: 02/23/2017. DATE OF DISCHARGE: 02/26/2017. PERTINENT PROCEDURES: 1. Head CT. 2. Brain MRA. 3. Brain MRI. The MRI was negative for hemorrhage. Showed mild chronic ischemic changes with a small old right parietal infarct. Brain MRA showed no evidence of intracranial flow limiting stenosis. Brain MRI showed an acute infarct involving the left cerebral hemisphere. A focal signal abnormality separate from the acute infarct also involving the left cerebellar hemisphere that exhibited enhancement more than likely represents an older subacute infarct and several periventricular chronic lacunar infarcts. Echocardiogram showed an ejection fraction of 65% with grade 1 ventricular diastolic dysfunction. DISCHARGE DIAGNOSES: 1. Acute left cerebellar infarct. Neurology was consulted. Continue with dual anti-platelet therapy. Started Zetia. The patient had a bad pancreatitis reaction to Lipitor. Neurology suggestion encouraged aggressive management with his risk factors, which included ischemic heart disease, previous stroke, previous cigarette smoking, hypertension, dyslipidemia, as well as evidence of diabetes, and a carotid ultrasound completed showed critical stenosis. There was no prior study for comparison but was consistent with chronic stenosis. This was not a vascular distribution for his recent infarct. Dr. Pichardo discussed options for further workup, including a CTA, MRA, and conventional arteriogram. Since clinically he is stable in the lesion is not symptomatic, he felt it would be reasonable to discharge the patient home with a plan to repeat his carotid study in a few months, or sooner if more symptoms arose. 2. Acute vertigo with multiple episodes of vomiting secondary to acute left cerebellar infarct. Improved. 3. Uncontrolled hypertension. On admission, the patient's blood pressure was 230/66. It is no controlled. Continue with aggressive management of his blood pressures. 4. Morbid obesity with a BMI of 38. The patient has been counseled on diet as well as an exercise regimen. 5. Coronary artery disease status post a coronary artery bypass graft in 2006. 6. Diabetes mellitus. Hemoglobin A1c of 7.8. HOSPITAL COURSE: Briefly, Mr. Amaya is a 56-year-old, male who carries a past medical history of: 1. Coronary artery disease status post bypass. 2. Hypertension. 3. Hyperlipidemia. 4. With a statin allergy that caused pancreatitis on no treatment at the time of his admission. 5. Previous cerebrovascular accident. 6. Diverticulosis. 7. Diabetes mellitus type 2. Mr. Amaya presented to the emergency department with complaint of vertigo, nausea, and vomiting. He stated after a sneezing spell he had blurred vision and double vision and he experience nausea and vomiting times several episodes. He began having softer stools, which he does not normally have. The patient was admitted to the [facility] unit for a transient ischemic attack versus a cerebrovascular accident with a differential of vertigo. He underwent an extensive neurological workup with a head CT, brain MRA, brain MRI, echocardiogram, as well as carotid Dopplers, which have not fully resulted. All studies except for his brain MRI were negative. His MRI showed an acute infarct involving the left cerebral hemisphere. Dr. Pichardo with Neurology was consulted. He suggested aggressive treatment of his risk factors, as well as dual anti-platelet therapy. The patient was placed on Zetia because he does have a statin allergy that caused acute pancreatitis. His carotid ultrasound did show critical stenosis. However, this is not the vascular distribution for his recent infarct. They did discuss further workup, including CTA, MRA, conventional arteriogram. But since he was clinically stable and the lesion was not symptomatic, he felt it reasonable to be discharged home and plan to repeat the carotid study in a few months, or sooner if more symptoms arise. Clinically, Mr. Amaya refers to doing better. His dizziness and vertigo have completely resolved. He will be discharged home today to follow up with Dr. Pichardo as well as his primary care physician, Dr. Harkins. VITALS ON THE DAY OF DISCHARGE: Temperature is 98 degrees, heart rate 84, respirations 18, blood pressure 188/70, O2 is 90% on room air. DISCHARGE MEDICINES: As per Dr. Juarez: 1. Norvasc 5 mg p.o. daily. 2. Aspirin 81 mg p.o. daily. 3. Plavix 75 mg p.o. daily. 4. Zetia 10 mg p.o. at bedtime. 5. Lasix 40 mg p.o. daily p.r.n. 6. Imdur 60 mg p.o. daily. 7. Lisinopril 20 mg p.o. b.i.d. 8. Toprol-XL 50 mg p.o. daily. 9. Multivitamin daily 1 each p.o. daily. 10. Nitrostat 0.4 mg sublingual p.r.n. FOLLOWUP CARE: Mr. Amaya will follow up with Dr. Pichardo as well as his primary care physician, Dr. Harkins. The patient will need to follow up with [facility] in 2 weeks to re-evaluate his carotids. DISCHARGE INSTRUCTIONS: The patient can return to the emergency department for any worsening of symptoms. Again, it has been discussed that he will need to control his risk factors. The patient can return to the emergency department for any worsening of symptoms. DISCHARGE TIME: 30 minutes. This is COLIN Mena, doing a discharge summary for Dr. Juarez. Dictated by COLIN Mena for Jim Juarez MD cc: Jim Juarez MD
--- NOTE | 2017-02-28 09:03 | Carotid Study ---
DATE: 02/26/2017 PROCEDURE: Carotid duplex imaging. REFERRING PHYSICIAN: Clinton Pichardo III, MD. INTERPRETING PHYSICIAN: Viet Guzman MD. TECH: [place]. INDICATIONS: The patient has had a CVA, a history of bilateral carotid endarterectomy in 2010. OBSERVED DATA RIGHT LEFT Brachial Blood Pressure Carotid Pulse Bruits: Carotid/Sub DIAGRAM OF ULTRASOUND IMAGING R L RIGHT INT EXT INT EXT LEFT Jakob (cm/s) Jkaob (cm/s) Subclavian 126/0 Subclavian 166/0 CCA Proximal 128/16 CCA Proximal 128/5 CCA Distal 79/16 CCA Distal 73/0 Bulb 103/15 Bulb 54/5 ICA Proximal 73/13 ICA Proximal 339/87 ICA Mid 91/33 ICA Mid 260/66 ICA Distal 112/35 ICA Distal 149/18 ECA 190/8 ECA 116/0 Vertebral 27/8 A Vertebral 38/15 A ICA/CCA Ratio 0.9 ICA/CCA Ratio 2.7 % Stenosis 40-59 % Stenosis 60-79 PHYSICIAN INTERPRETATION: This gentleman has evidence of bilateral carotid endarterectomy. The right side remains satisfactorily patent post endarterectomy. The left side has a stenosis at the proximal ICA. Would consider further vascular evaluation. There remains antegrade vertebral flow bilaterally. cc: MD Clinton Gregorio III, MD
== END 2017-02-26 15:35 | disposition home or self-care (01) ==
LOC: ED 18:07 → SUATTDRO 22:22 → 3S 22:22
PROVIDERS: ATTEND Internal Medicine